=== PATIENT | male | born 1985 ===

== ENCOUNTER 2017-03-10 15:00 | Emergency (ER) | payer BC ==
[2017-03-10 15:35] VITALS: BP 121/82
--- NOTE | 2017-03-10 16:28 | UC ---
Headache HPI - HPI Summary HPI Summary: 31 yo male with occipital FLOWER x 3 days gradual onset photophobia neck pain and tightness ? feverish nausea no vomiting Hx of migraines outdoors every day he is concerned re lyme disease - History Of Current Complaint Chief Complaint: UCHeadache Stated Complaint: FLOWER,NECK PAIN Time Seen by Provider: 03/10/17 15:35 Onset/Duration: Gradual Onset, Lasting Days Onset Of Symptoms: Gradual, Still Present Initially Headache Was: Moderate Currently Pain Is: Current Pain Scale(0-10)= - 8 Pain Scale Used: 0-10 Numeric Timing: Constant Character: Throbbing, Pressure Location of Headache: Occipital - radiates forward/also some neck pain Allevating Factors: Position Change Associated Signs And Symptoms: Positive: Nausea, Fever - Unknown...thinks he may have had a fever, Neck Pain - Allergies/Home Medications Allergies/Adverse Reactions: Allergies Allergy/AdvReac Type Severity Reaction Status Date / Time Sulfa Antibiotics Allergy Unknown Verified 03/10/17 15:29 Reaction Details Home Medications: Home Medications Ibuprofen TAB* [Advil TAB*] 600 mg PO Q6H PRN 03/10/17 [History Confirmed ] PMH/Surg Hx/FS Hx/Imm Hx Previously Healthy: Yes Neurological History: Migraine - Surgical History Surgical History: Yes Surgery Procedure, Year, and Place: knee surgery x3 - Family History Known Family History: Positive: Hypertension - Social History Alcohol Use: None Substance Use Type: None Smoking Status (MU): Heavy Every Day Tobacco Smoker Type: Cigarettes Amount Used/How Often: 1 PPD Review of Systems Constitutional: Fever - ?maybe Skin: Negative Eyes: Photophobia ENT: Negative Respiratory: Negative Cardiovascular: Negative Gastrointestinal: Negative Genitourinary: Negative Motor: Negative Neurovascular: Negative Musculoskeletal: Myalgia Neurological: Headache Psychological: Negative All Other Systems Reviewed And Are Negative: Yes Physical Exam Triage Information Reviewed: Yes Appearance: Well-Appearing, No Pain Distress, Well-Nourished Vital Signs: Initial Vital Signs Temp 99.0 F 03/10/17 15:29 Pulse 103 03/10/17 15:29 Resp 16 03/10/17 15:29 BP 121/82 03/10/17 15:29 Pulse Ox 100 03/10/17 15:29 Vital Signs Reviewed: Yes Eyes: Positive: Conjunctiva Clear, Other: - eomi/perrl ENT: Positive: Hearing grossly normal, Pharynx normal, TMs normal, Other: - no sinus tenderness. Negative: Nasal congestion, Nasal drainage, Tonsillar exudate , Trismus, Muffled/hoarse voice Dental: Negative: Abscess @ Neck: Positive: Supple, Nontender, No Lymphadenopathy. Negative: Nuchal Rigidity Respiratory: Positive: Lungs clear, Normal breath sounds, No respiratory distress, No accessory muscle use Cardiovascular: Positive: RRR, No Murmur, Tachycardia Abdomen Description: Positive: Nontender, No Organomegaly Musculoskeletal: Positive: ROM Intact, No Edema Neurological: Positive: Alert Psychological Exam: Normal Skin Exam: Normal Re-Evaluation - Re-Evaluation First Eval Re-Evaluation Time: 05:20 Change: Unchanged - only minimal if any improvement Headache Course/Dx - Course Course Of Treatment: Ct of brain and xr of neck negative. Little or no improvement with toradol. Discussed sending him to ER for stat blood work and consideration of LP. He declined vehement stating he hates doctors and hospitals and just wants to leave. He is aware that he can go to the ER anytime he chooses and that he should do so for persistent or worsening symptoms. He under no circumstances will go there now - Differential Dx/Diagnosis Provider Diagnoses: headache of uncertain cause. ? lyme disease vs other Discharge - Discharge Plan Condition: Stable Disposition: HOME Prescriptions: DOXYcycline CAP(*) [DOXYcycline 100MG CAP(*)] 100 mg PO BID #42 cap HYDROcodone/ACETAMIN 5-325 MG* [[place] 5-325 TAB*] 1 tab PO Q4H PRN #15 tab MDD 6 PRN Reason: Headache/Pain Patient Education Materials: Acute Headache (ED) Referrals: Non Staff,Doctor [Primary Care Provider] - Additional Instructions: I am unsure of the cause of your headache a blood count and lyme test are pending IF SYMPTOMS WORSEN I SUGGEST YOU GO TO THE ER TEMP >101 WORSENING HEADACHE WORSENING NECK PAIN/STIFFNESS VOMITING or if not better in 48 hours We will initiate antibiotics in cause this is due to lyme disease
[2017-03-10] MEDS ORDERED: Ketorolac INJ* 30 MG/ML 1 ML VIAL IM ONE (16:39)
--- NOTE | 2017-03-10 16:48 | RAD ---
INDICATION: Neck pain. Radicular symptoms COMPARISON: None TECHNIQUE: Routine five-view imaging was performed FINDINGS: Bones: There are no acute bony findings. There are no significant osteoarthritic findings. Craniocervical junction: The odontoid and atlantodental interval are normal. Alignment: Normal Disc spaces: The disc spaces are well-maintained Soft tissues: The prevertebral soft tissues are normal. IMPRESSION: NO PLAIN RADIOGRAPHIC ABNORMALITIES.
--- NOTE | 2017-03-10 16:52 | RAD ---
INDICATION: Occipital headaches COMPARISON: None TECHNIQUE: Noncontrast axial source images were acquired from the skull base to the vertex. FINDINGS: Ventricles/sulci: The ventricles and cisterns are normal in size and configuration for age. Brain parenchyma: There is no focal parenchymal finding, evidence of intracranial mass, or intracranial mass effect. Intracranial hemorrhage:None. Extra-axial spaces: There are no abnormal extra axial fluid collections or evidence of extra-axial mass. Calvarium: There is no calvarial fracture or other calvarial abnormality. Scalp: There is no evidence of scalp or extracalvarial soft tissue abnormality. Paranasal sinuses/mastoid: The paranasal sinuses and mastoid air cells are clear. Other: None. IMPRESSION: NEGATIVE EXAMINATION
[2017-03-10] MEDS ORDERED: HYDROcodone/ACETAMIN 5-325 MG* 1 TAB PO ONE (17:25)
[2017-03-10 20:29] LABS: Hematocrit 47 % (42-52); Mean Corpuscular HGB Conc 34 g/dl (31-36); Mean Corpuscular Hemoglobin 31 pg (27-31); Mean Corpuscular Volume 92 fL (80-94); Mean Platelet Volume 9 um3 (7.4-10.4); Red Blood Count 5.13 10^6/ul (4.0-5.4); Red Cell Distribution Width 13 % (10.5-15); White Blood Count 7.3 10^3/ul (3.5-10.8)
== END 2017-03-10 17:42 | disposition home or self-care (01) ==
LOC: UCCORT 15:00
DX: R51 Headache (principal); R11.0 Nausea; M54.2 Cervicalgia; Z88.2 Allergy status to sulfonamides; F17.210 Nicotine dependence, cigarettes, uncomplicated
CPT/HCPCS: 36415; 70450; 72050; 85025; 86617; 86618; 96372; 99202; G0463; J1885